=== PATIENT | female | born 1975 | race Caucasian/White ===

== ENCOUNTER 2016-10-16 13:13 | Inpatient (IN) | payer OTHER ==
[~2016-10-16] VITALS: Ht 165.1 cm; Wt 81.6 kg
--- NOTE | 2016-10-16 13:35 | NUR ---
LABS DRAWN AND SENT
--- NOTE | 2016-10-16 13:35 | NUR ---
PT PRESENTS TO ER C/O OF ABDOMINAL PAIN AND DISCHARGE IN URINE. PT STATES SHE HAD HER GALLBLADDER REMOVED IN JULY AND SINCE THEN HAS HAD MULTIPLE ISSUES. PT STATES SHE HAS BEEN HAVING ISSUES WITH BILE DRAINAGE INTO HER BODY, NAUSEA, AND HAS DROPPED 40 LBS BECAUSE SHE CAN'T KEEP ANYTHING DOWN.
[2016-10-16 13:46] LABS: ABSOLUTE BASOPHIL COUNT 0.1 /CUMM (0.0-0.2); ABSOLUTE EOSINOPHIL COUNT 0.1 /CUMM (0.0-0.7); ABSOLUTE GRANULOCYTE CT 5.6 /CUMM (1.4-6.5); ABSOLUTE LYMPH COUNT 3.2 /CUMM (1.2-3.4); ABSOLUTE MONOCYTE COUNT 0.2 /CUMM (0.10-0.60); BASOPHIL % 0.7 % (0.0-2.0); EOSINOPHIL % 0.9 % (0-5); GRANULOCYTE % 60.6 % (42.2-75.2); HEMATOCRIT 42.6 % (37-47); MEAN CORPUSCULAR HGB 25.7 PG (27.0-31.0); MEAN CORPUSCULAR HGB CONC 32.5 G/DL (33.0-37.0); MEAN CORPUSCULAR VOLUME 79.3 FL (81.0-99.0); MEAN PLATELET VOLUME 9.4 FL (7.4-10.4); PLATELET COUNT 355 /CUMM (130-400); RBC DISTRIBUTION WIDTH 17.3 % (11.5-14.5); RED BLOOD CELL CT 5.38 /CUMM (4.20-5.40)
[2016-10-16 14:07] LABS: WHITE BLOOD CELL COUNT 9.2 /CUMM (4.8-10.8)
--- NOTE | 2016-10-16 14:29 | NUR ---
URINE SPECIMEN SENT TO THE LAB (1 CLEAR TUBE)
[2016-10-16] MEDS ORDERED: SUBOXONE 2 MG-1 EACH SL (14:30)
--- NOTE | 2016-10-16 14:30 | ED GI/GU/ABDOMINAL COMPLAINT ---
History of Present Illness General Chief Complaint: Abdominal Pain/Flank Pain Stated Complaint: ABD PAIN DISCOLORATION OF URINE S/P GALLBLADDER SR Source: patient Exam Limitations: no limitations Vital Signs & Intake/Output Vital Signs & Intake/Output Vital Signs Date Time Temp Pulse Resp B/P B/P Pulse O2 O2 Flow FiO2 Mean Ox Delivery Rate 10/16 1733 97.6 70 18 152/82 98 Room Air 10/16 1321 98.1 94 20 171/95 97 Room Air Allergies Coded Allergies: No Known Allergies (10/16/16) Reconcile Medications Buprenorphine HCl/Naloxone HCl (Suboxone 2 MG-0.5 MG Sl Film) 2 MG-0.5 MG FILM 1 STR SL BID MAINTENCE (Reported) Multivits,Ca,Minerals/Iron/FA (Women's Daily Caplet) 27 MG IRON-400 MCG TABLET 1 TAB PO DAILY SUPPLEMENT (Reported) Triage Note: PT PRESENTS TO ER C/O OF ABDOMINAL PAIN AND DISCHARGE IN URINE. PT STATES SHE HAD HER GALLBLADDER REMOVED IN JULY AND SINCE THEN HAS HAD MULTIPLE ISSUES. PT STATES SHE HAS BEEN HAVING ISSUES WITH BILE DRAINAGE INTO HER BODY, NAUSEA, AND HAS DROPPED 40 LBS BECAUSE SHE CAN'T KEEP ANYTHING DOWN. Triage Nurses Notes Reviewed? yes ? N Is pt currently ? No Onset: Gradual Duration: constant Timing: recent history Quality/Severity: moderate Severity Numbers: 5 Location: generalized abdomen Radiation: no radiation HPI: Patient is a 41-year-old female with a past medical history of heroin abuse currently on Suboxone where she has not used in over 3 years who presents emergency room saying that for approximate 1 year patient was complaining of right upper quadrant abdominal pain in which she was admitted on July 28 TO [facility] in which she had a cholecystectomy performed BY DR SALDANA however patient returned that evening to the emergency room AT [facility] for persistent abdominal pain worse she was discharged however patient then returned to [facility] 3 days later and received a cholecystostomy drain AND SUSPECTING CBD STENT and admitted Patient had the drain removed in the first week in August patient followed up with her primary care doctor 2 weeks later for concerns of persistent abdominal discomfort weight loss diet urine and worsening pain after by mouth intake and which she states in the last 3 days symptoms have worsened where she this morning had one episode of nonbloody nonbilious emesis. Patient is stating that her urine looks like bile Denies any fever chills back pain chest pain shortness of breath dysuria hematuria Patient has been able to tolerate by mouth without emesis however her ABDOMINAL symptoms are worse Denies any alcohol use or NSAID use. (KAL JESSICA) Past History Travel History Traveled to [place] past 21 day No Medical History Any Pertinent Medical History? none Neurological: NONE Cardiovascular: NONE Respiratory: NONE Gastrointestinal: NONE Hepatic: NONE Renal: NONE Musculoskeletal: NONE Psychiatric: NONE Endocrine: NONE Surgical History Surgical History: cholecystectomy, , tubal ligation Psychosocial History What is your primary language [place] Tobacco Use: Current Daily Use Daily Tobacco Use Amount/Type: => 5 Cigarettes daily Family History Hx Contributory? No (KAL JESSICA) Review of Systems Review of Systems Constitutional: Reports: no symptoms. EENTM: Reports: no symptoms. Respiratory: Reports: no symptoms. Cardiovascular: Reports: no symptoms. GI: Reports: see HPI, abdominal pain. Genitourinary: Reports: see HPI. Musculoskeletal: Reports: no symptoms. Skin: Reports: no symptoms. Neurological/Psychological: Reports: no symptoms. Hematologic/Endocrine: Reports: no symptoms. Immunologic/Allergic: Reports: no symptoms. All Other Systems: Reviewed and Negative (KAL JESSICA) Physical Exam Physical Exam General Appearance: no apparent distress, alert, comfortable Eyes: Bilateral: PERRL, EOMI, other (ICTERUS). Gastrointestinal: normal bowel sounds, soft, NOTED WELL HEALING INCISIONAL SCARS , GENERALIZED ABDOMINAL POINT TENDERNESS Comments: Well-developed well-nourished person in no acute distress Neck: Supple, no lymphadenopathy, normal range of motion without pain or tenderness Back: Nontender, no CVA tenderness. Cardiovascular: Regular rate and rhythms no murmurs rubs or gallops, normal JVP Respiratory: Chest nontender. No respiratory distress.breath sounds clear to auscultation bilaterally Extremity: No edema, no calf tenderness to palpation, normal and equal pulses. Neuro: Alert oriented x3, motor sensory normal, Skin: No appreciable rash on exposed skin, skin is warm and dry. Psych: Mood and affect is normal, memory and judgment is normal. Core Measures ACS in differential dx? No Severe Sepsis Present: No Septic Shock Present: No (KLA JESSICA) Progress Differential Diagnosis: AAA, AMI, appendicitis, biliary colic, bowel obstruction , colon cancer, cholecystitis, diverticulitis, ectopic , endometritis, esophageal varices, gastritis, ischemic bowel, inflamm bowel dis, kidney stone, ovarian cyst, ovarian torsion, pancreatitis, PID/cervicitis, peptic ulcer, PUD/ GERD, perforated viscous, SBO, UTI/pyelo, CHOLANGITIS Plan of Care: Orders Procedure Date/time Status Nothing by Mouth 10/17 B Active PROTHROMBIN TIME 10/17 0600 Active HEPATIC FUNCTION PANEL 10/17 0600 Active CBC WITHOUT DIFFERENTIAL 10/17 0600 Active BASIC ELECTROLYTES PLUS BUN&CR 10/17 0600 Active Full Liquid Diet 10/16 D Complete Vital Signs 10/16 1803 Active Teach/Educate 10/16 1803 Active Pain Treatment and Response 10/16 180 Active Nutritional Intake, Monitor 10/16 1803 Active Isolation 10/16 1803 Active Intake & Output 10/16 1803 Active Patient Care Conference 10/16 1803 Active Activity/Ambulation 10/16 1803 Active Intake & Output 10/16 1742 Active Saline Lock 10/16 1624 Active Misc Message 10/16 1624 Active ED Holding Orders 10/16 1624 Active Vital Signs 10/16 1624 Active Activity/Ambulation 10/16 1624 Active Pathway - chart 10/16 1613 Active House Staff 10/16 1613 Active Patient Data 10/16 1613 Active Code Status 10/16 1613 Active Admit to inpatient 10/16 1558 Active Add-on Test (ER Only) 10/16 1511 Active BLOOD CULTURE 10/16 1507 Active Add-on Test (ER Only) 10/16 1505 Active Add-on Test (ER Only) 10/16 1458 Active PARTIAL THROMBOPLASTIN TIME 10/16 1327 Complete PROTHROMBIN TIME 10/16 1327 Complete LIPASE 10/16 1327 Complete LACTIC ACID 10/16 1327 Complete HUMAN BETA HCG TITRE 10/16 1327 Complete DIRECT BILIRUBIN 10/16 1327 Complete AMYLASE 10/16 1327 Complete URINALYSIS 10/16 1321 Complete COMPREHENSIVE METABOLIC PANEL 10/16 1321 Complete CBC WITHOUT DIFFERENTIAL 10/16 1321 Complete VTE Mechanical Prophylaxis 10/16 UNK Active Current Medications Sig/Gabriella Start time Last Medication Dose Stop Time Status Admin Ampicillin Sodium/ 1,500 MG Q6 10/17 1200 AC Sulbactam Sodium (Unasyn) Sodium Chloride 100 ML (Normal Saline 0.9%) Enoxaparin Sodium 40 MG DAILY 10/17 1000 CAN (Lovenox) Ketorolac 30 MG Q6-PRN PRN 10/16 1815 AC Tromethamine (Toradol) Ondansetron HCl 4 MG Q6P PRN 10/16 1800 AC (Zofran) Sodium Chloride 1,000 ML .Q8H 10/16 1630 AC 10/16 (Normal Saline 0.9%) 1710 Laboratory Tests 10/16/16 1426: Urinalysis LIGHT H, Urine Color BROWN H, Urine Clarity HAZY H, Urine pH 5.5, Ur Specific [place] >= 1.030, Urine Protein 30 H, Urine Ketones TRACE H, Urine Nitrite POS H, Urine Bilirubin POS@ICTO H, Urine Urobilinogen 1.0, Ur Leukocyte Esterase TRACE H, Ur Microscopic SEDIMENT EXAMINED, Urine RBC 1-3, Urine WBC 15-25 H, Ur Epithelial Cells PACKD H, Urine Crystals 1+ CA OX H, Urine Bacteria MANY H, Urine Mucus MANY H, Urine Hemoglobin TRACE-INTACT, Urine Glucose NEG 10/16/16 1327: Anion Gap 13, Estimated GFR > 60, BUN/Creatinine Ratio 14.0, Glucose 96, Lactic Acid 1.9, Calcium 10.0, Total Bilirubin 5.0 H, Direct Bilirubin 3.9 H, AST 534 H, ALT 409 H, Alkaline Phosphatase 576 H, Total Protein 7.5, Albumin 4.4, Globulin 3.1, Albumin/Globulin Ratio 1.4, Amylase 48, Lipase 123, Beta HCG, Quant < 2.4, PT 11.2, INR 1.07, APTT 33, CBC w Diff NO MAN DIFF REQ, RBC 5.38, MCV 79.3 L, MCH 25.7 L, RDW 17.3 H, MPV 9.4, Gran % 60.6, Lymphocytes % 35.2, Monocytes % 2.6, Eosinophils % 0.9, Basophils % 0.7, Absolute Granulocytes 5.6, Absolute Lymphocytes 3.2, Absolute Monocytes 0.2, Absolute Eosinophils 0.1, Absolute Basophils 0.1, PUBS MCHC 32.5 L Microbiology 10/16 1710 BLOOD: Blood Culture - RECD 10/16 1546 BLOOD: Blood Culture - RECD Patient on initial examination has generalized abdominal point tenderness and labs show elevated bilirubin and LFTs for concern of cholangitis AND/or possible retained stone. Ultrasound was ordered Discussed patient with Dr. Mcneil who also was aware of patient's admission and will consult. Patient will most likely require ERCP. Ultrasound showed concerns of duct dilation as well as hepatic duct dilation Antibiotics were ordered for suspecting cholangitis. KUB was ordered Discussed disposition plan with patient who was aware and HAS NO QUESTIONS patient declined pain medications when offered DENIES ANY CURRENT NAUSEA (KAL JESSICA) Diagnostic Imaging: Viewed by Me: Ultrasound. Radiology Impression: SEE COMMENTS Initial ED EKG: none Comments: PATIENT: CHRISTOPHER SIMPSON PRESENT AGE: 41 PATIENT ACCOUNT NO: [id number] : 77 LOCATION: [facility] ORDERING PHYSICIAN: KAL PATEL SERVICE DATE: 10/16/161933 EXAM TYPE: US - US-LIMITED ABDOMEN EXAMINATION: US ABDOMEN LIMITED CLINICAL INFORMATION: Right upper quadrant pain and nausea. History of cholecystectomy. COMPARISON: None TECHNIQUE: Real-time imaging of the right upper quadrant abdominal viscera. FINDINGS: PANCREAS: Normal. LIVER: Normal. The liver demonstrates normal size, contour and echogenicity. No focal lesion. There is mild dilatation of the intrahepatic bile ducts. GALLBLADDER: The gallbladder is surgically removed. Trace fluid is seen in the gallbladder fossa. COMMON BILE DUCT: The common bile duct is dilated measuring 0.8 cm in diameter. An echogenic focus is seen in the mid to distal common bile duct which could reflect an endoscopic biliary drain but could also reflect choledocholithiasis. RIGHT KIDNEY: Normal. No hydronephrosis. No renal calculi or focal parenchymal lesions. The kidney measures 11.6 cm in maximum dimension. FREE FLUID: None. IMPRESSION: 1. Mild dilatation of intrahepatic bile ducts and the extrahepatic bile duct is also dilated to 8 mm. 2. Echogenic structure in the distal CBD could reflect an endoscopic biliary drain or choledocholithiasis. Consider GI consultation and possible ERCP as appropriate. 3. KUB may also be of utility to assess for any residual drains or catheters if the clinical history is not clear. The findings were discussed with Kal Box. DICTATED BY: BREANNA GARCIAS MD (KAL JESSICA) Departure Departure Disposition: STILL A PATIENT Condition: Fair Clinical Impression Primary Impression: Biliary colic Secondary Impressions: Cholangitis, Common bile duct dilatation Referrals: PATIENT HAS NO PRIMARY CARE DR (PCP/Family) Departure Forms: Customer Survey General Discharge Information Admission Note Spoke With: AROLE M.D,OLUGBENGA Documentation of Exam: Documentation of any treatments & extenuating circumstances including Concerns Regarding Discharge (functional status, medication knowledge or non-compliance, living conditions, etc.) that warrant an admission rather than observation: [ Discussed patient with who agrees with general medicine admission which patient requires GI consultation, repeat labs, ERCP and possible antibiotics for cholangitis. Outpatient treatment would be medically harmful] (KAL JESSICA) PA/[employer]IVER Co-Sign Statement Statement: ED Attending supervision documentation- [] I saw and evaluated the patient. I have also reviewed all the pertinent lab results and diagnostic results. I agree with the findings and the plan of care as documented in the PA's/[employer] TR[employer]'s documentation. [X] I have reviewed the ED Record and agree with the PA's/[employer]'s documentation. [] Additions or exceptions (if any) to the PAs/[employer]IVER's note and plan are summarized below: [] (LORI BAUMAN,NESHA Marvin) Critical Care Note Critical Care Note Critical Care Time: 30-74 min (KAL JESSICA)
[2016-10-16] MEDS ORDERED: WOMEN'S DAILY1 EAC3 PO (14:31)
[2016-10-16 15:14] LABS: PT 11.2 SEC (9.4-12.5); PTT 33 SEC (25-37)
--- NOTE | 2016-10-16 15:16 | NUR ---
PT TO US BY NITIN.
--- NOTE | 2016-10-16 15:48 | NUR ---
PT RETURNED FROM US, 1ST SET OF BC DRAWN AND SENT TO LAB. IV EST, NS INFUSING PER EMAR.
--- NOTE | 2016-10-16 15:59 | ULTRASOUND REPORT ---
EXAMINATION: US ABDOMEN LIMITED CLINICAL INFORMATION: Right upper quadrant pain and nausea. History of cholecystectomy. COMPARISON: None TECHNIQUE: Real-time imaging of the right upper quadrant abdominal viscera. FINDINGS: PANCREAS: Normal. LIVER: Normal. The liver demonstrates normal size, contour and echogenicity. No focal lesion. There is mild dilatation of the intrahepatic bile ducts. GALLBLADDER: The gallbladder is surgically removed. Trace fluid is seen in the gallbladder fossa. COMMON BILE DUCT: The common bile duct is dilated measuring 0.8 cm in diameter. An echogenic focus is seen in the mid to distal common bile duct which could reflect an endoscopic biliary drain but could also reflect choledocholithiasis. RIGHT KIDNEY: Normal. No hydronephrosis. No renal calculi or focal parenchymal lesions. The kidney measures 11.6 cm in maximum dimension. FREE FLUID: None. IMPRESSION: 1. Mild dilatation of intrahepatic bile ducts and the extrahepatic bile duct is also dilated to 8 mm. 2. Echogenic structure in the distal CBD could reflect an endoscopic biliary drain or choledocholithiasis. Consider GI consultation and possible ERCP as appropriate. 3. KUB may also be of utility to assess for any residual drains or catheters if the clinical history is not clear. The findings were discussed with Atif Box.
--- NOTE | 2016-10-16 16:23 | Cons- Gastroenterology ---
General Information and HPI Consulting Request Date of Consult: 10/16/16 Requested By: JORGE Enamorado Reason for Consult: Increased LFTs, abdominal pain, diarrhea, vomiting. Abnomral US showing suma dil and possible biliary stent. Source of Information: patient Exam Limitations: pt isn't entirely certain on the details of her CCY removal and the procedures which followed which sounds like she had an ERCP and possible PTC. History of Present Illness: Ms. Goodson is a 41 year old female who had her gallbladder out in late July for biliary colic who comes to today with complaints of worsening abdominal pain associated with bilious vomiting. She notes that her GB removal was uneventful, but a few days after her gallbladder was removed she went back to the ER with pain and vomiting during which time she had a percutanous drain placed and she may have also had an ERCP with a stent being placed, but she is uncertain of the details of what was done. Her percutanous drain was removed in the surgeons office in August without incident, but she notes that she hasn't felt quite well since her CCY. She has had a lot of nausea and abdominal discomfort with eating and she has also had some non-bloody diarrhea. This morning she had an exacerbation of her symptoms with nausea and vomiting for which she came here for further evaluation. She has not had any fevers and she is without hematemesis. She does note some dark urine, but her stool has been loose and she doesn't necessarily describe it as being pola colored. She is without any brbpr or melena. On arrival to the ER she was afebrile, and hemodynamically stable. She was given a dose of unasyn and had an US done when her LFTs came back markedly elevated which showed a CBD of 8mm with a possible stone or a stent. She has not had any vomiting or significant abdominal pain since presentation and she has not required pain meds. Allergies/Medications Allergies: Coded Allergies: No Known Allergies (10/16/16) Home Med List: Buprenorphine HCl/Naloxone HCl (Suboxone 2 MG-0.5 MG Sl Film) 2 MG-0.5 MG FILM 1 STR SL BID MAINTENCE (Reported) Ciprofloxacin HCl (Cipro) 500 MG TABLET 500 MG PO BID Infection Multivits,Ca,Minerals/Iron/FA (Women's Daily Caplet) 27 MG IRON-400 MCG TABLET 1 TAB PO DAILY SUPPLEMENT (Reported) Current Medications: Current Medications Sig/Gabriella Start time Last Medication Dose Route Stop Time Status Admin Ampicillin Sodium/ 0 .STK-MED ONE 10/16 1522 DC Sulbactam Sodium .ROUTE Ampicillin Sodium/ 1,500 MG ONCE ONE 10/16 1515 DC Sulbactam Sodium IV 10/16 1544 Sodium Chloride 100 ML Sodium Chloride 1,000 ML BOLUS ONE 10/16 1500 DC 10/16 IV 10/16 1559 1548 Past History Travel History Traveled to [place] past 21 day No Medical History Neurological: NONE Cardiovascular: NONE Respiratory: NONE Gastrointestinal: NONE Hepatic: NONE Renal: NONE Musculoskeletal: NONE Psychiatric: NONE Endocrine: NONE Surgical History Surgical History: cholecystectomy, , tubal ligation Review of Systems Review of Systems Constitutional: Reports: unexplained weight loss. Denies: chills (about 30 lb wt loss since CCY ), diaphoresis, fever. EENTM: Reports: icterus. Denies: double vision, visual changes. Cardiovascular: Denies: no symptoms. Respiratory: Denies: no symptoms. GI: Reports: see HPI. Genitourinary: Reports: see HPI. Musculoskeletal: Denies: no symptoms. Skin: Denies: no symptoms. Neurological/Psychological: Denies: no symptoms. Hematologic/Endocrine: Denies: no symptoms. Immunologic/Allergic: Denies: no symptoms. All Other Systems: Reviewed and Negative Exam & Diagnostic Data Vital Signs and I&O Vital Signs Date Time Temp Pulse Resp B/P B/P Pulse O2 O2 Flow FiO2 Mean Ox Delivery Rate 10/16 1321 98.1 94 20 171/95 97 Room Air Intake & Output 10/16 1600 10/16 0400 10/15 0400 10/14 0400 Intake Total Output Total Balance Patient 180 lb Weight Physical Exam General Appearance: well developed/nourished, no apparent distress, comfortable Head: atraumatic, normal appearance Eyes: Bilateral: other (scleral icterus). Ears, Nose, Throat: normal pharynx, normal ENT inspection Neck: normal inspection, supple, full range of motion Respiratory: normal breath sounds, chest non-tender, no respiratory distress Cardiovascular: regular rate/rhythm Gastrointestinal: normal bowel sounds, soft, non-tender Rectal: deferred Back: normal inspection, normal range of motion Extremities: normal inspection, normal capillary refill, no edema Results Pertinent Lab Results: Laboratory Tests 10/16 10/16 1426 1327 Chemistry Sodium (137 - 145 mmol/L) 137 Potassium (3.5 - 5.1 mmol/L) 3.6 Chloride (98 - 107 mmol/L) 98 Carbon Dioxide (22 - 30 mmol/L) 26 Anion Gap (5 - 16) 13 BUN (7 - 17 mg/dL) 7 Creatinine (0.5 - 1.0 mg/dL) 0.5 Estimated GFR (>60 ml/min) > 60 BUN/Creatinine Ratio (7 - 25 %) 14.0 Glucose (65 - 99 mg/dL) 96 Lactic Acid (0.7 - 2.1 mmol/L) 1.9 Calcium (8.4 - 10.2 mg/dL) 10.0 Total Bilirubin (0.2 - 1.3 mg/dL) 5.0 H Direct Bilirubin (< 0.4 mg/dL) 3.9 H AST (14 - 36 U/L) 534 H ALT (9 - 52 U/L) 409 H Alkaline Phosphatase (<127 U/L) 576 H Total Protein (6.3 - 8.2 g/dL) 7.5 Albumin (3.5 - 5.0 g/dL) 4.4 Globulin (1.9 - 4.2 gm/dL) 3.1 Albumin/Globulin Ratio (1.1 - 2.2 %) 1.4 Amylase (30 - 110 U/L) 48 Lipase (23 - 300 U/L) 123 Beta HCG, Quant (mIU/mL) < 2.4 Coagulation PT (9.4 - 12.5 SEC) 11.2 INR (0.90 - 1.19) 1.07 APTT (25 - 37 SEC) 33 Hematology CBC w Diff NO MAN DIFF REQ WBC (4.8 - 10.8 /CUMM) 9.2 RBC (4.20 - 5.40 /CUMM) 5.38 Hgb (12.0 - 16.0 G/DL) 13.8 Hct (37 - 47 %) 42.6 MCV (81.0 - 99.0 FL) 79.3 L MCH (27.0 - 31.0 PG) 25.7 L RDW (11.5 - 14.5 %) 17.3 H Plt Count (130 - 400 /CUMM) 355 MPV (7.4 - 10.4 FL) 9.4 Gran % (42.2 - 75.2 %) 60.6 Lymphocytes % (20.5 - 51.1 %) 35.2 Monocytes % (1.7 - 9.3 %) 2.6 Eosinophils % (0 - 5 %) 0.9 Basophils % (0.0 - 2.0 %) 0.7 Absolute Granulocytes (1.4 - 6.5 /CUMM) 5.6 Absolute Lymphocytes (1.2 - 3.4 /CUMM) 3.2 Absolute Monocytes (0.10 - 0.60 /CUMM) 0.2 Absolute Eosinophils (0.0 - 0.7 /CUMM) 0.1 Absolute Basophils (0.0 - 0.2 /CUMM) 0.1 PUBS MCHC (33.0 - 37.0 G/DL) 32.5 L Urines Urinalysis LIGHT H Urine Color (YEL,AMB,STR) BROWN H Urine Clarity (CLEAR) HAZY H Urine pH (5.0 - 8.0) 5.5 Ur Specific [place] (1.001 - 1.035) >= 1.030 Urine Protein (NEG,<30 MG/DL) 30 H Urine Ketones (NEG) TRACE H Urine Nitrite (NEG) POS H Urine Bilirubin (NEG) POS@ICTO H Urine Urobilinogen (0.1 - 1.0 EU/dl) 1.0 Ur Leukocyte Esterase (NEG) TRACE H Ur Microscopic SEDIMENT EXAMINED Urine RBC (0 - 5 /HPF) 1-3 Urine WBC (0 - 2 /HPF) 15-25 H Ur Epithelial Cells (NONE,FEW) PACKD H Urine Crystals 1+ CA OX H Urine Bacteria (NEG/NONE) MANY H Urine Mucus (FEW,NONE) MANY H Urine Hemoglobin (NEG) TRACE-INTACT Urine Glucose (N MG/DL) NEG Imaging/Other Studies: SERVICE DATE: 10/16/16 EXAM TYPE: US - US-LIMITED ABDOMEN EXAMINATION: US ABDOMEN LIMITED CLINICAL INFORMATION: Right upper quadrant pain and nausea. History of cholecystectomy. COMPARISON: None TECHNIQUE: Real-time imaging of the right upper quadrant abdominal viscera. FINDINGS: PANCREAS: Normal. LIVER: Normal. The liver demonstrates normal size, contour and echogenicity. No focal lesion. There is mild dilatation of the intrahepatic bile ducts. GALLBLADDER: The gallbladder is surgically removed. Trace fluid is seen in the gallbladder fossa. COMMON BILE DUCT: The common bile duct is dilated measuring 0.8 cm in diameter. An echogenic focus is seen in the mid to distal common bile duct which could reflect an endoscopic biliary drain but could also reflect choledocholithiasis. RIGHT KIDNEY: Normal. No hydronephrosis. No renal calculi or focal parenchymal lesions. The kidney measures 11.6 cm in maximum dimension. FREE FLUID: None. IMPRESSION: 1. Mild dilatation of intrahepatic bile ducts and the extrahepatic bile duct is also dilated to 8 mm. 2. Echogenic structure in the distal CBD could reflect an endoscopic biliary drain or choledocholithiasis. Consider GI consultation and possible ERCP as appropriate. 3. KUB may also be of utility to assess for any residual drains or catheters if the clinical history is not clear. Assessment/Plan Assessment/Recommendations: Assessment: Ms. Goodson is a 41 year old female who had her gallbladder out a few months ago which then required what sounds like a PTC and/or an ERCP for unclear reasons a few days later who presents now with worsening vomiting and increased LFTs which I suspect is secondary to either a clogged biliary stent or a retained gallstone. I suspect she may have had a bile leak that was treated with IR drainage and an ERCP with stent placement and I also suspect that the diarrhea she has been having is bile acid diarrhea. Considering her increased bilirubin now and US findings she will likely require a repeat ERCP to either remove or exchange a clogged biliary stent or remove any retained stones within her CBD. As she is currently without signs of cholangitis as she is afebrile, doesn't have an elevated WBC and doesn't have significant RUQ pain this isn't urgent. This can also potentially be done as an outpatient, but considering the vomiting I would recommened admitting her and taking care of this now. Recommendations: 1. Check a KUB to see if a biliary stent is present 2. Notify GI for signs of cholangitis. OK to observe off of antibiotics, but she will likely require antibiotics for any biliary intervention that may be undertaken (ie. ERCP) 3. Diet as tolerated for now, but would keep NPO after midnight for a therapeutic ERCP for tomorrow, but may do sooner if she develops signs of cholangitis 4. Administer anti-emetics as needed 5. Folllow daily LFTS 6. Check coags 7. Make efforts to obtain details concerning her recent hospitalizations and procedures done at [facility]. I will continue to follow this patient and make further recommendations based on her clinical course and results of repeat LFTs. Consult Acknowledgment - Thank you for your consult request.
--- NOTE | 2016-10-16 16:40 | NUR ---
PT TO RAD BY STRETCHER.
--- NOTE | 2016-10-16 16:58 | RADIOLOGY REPORT ---
EXAMINATION: XR KIDNEYS, URETER, BLADDER CLINICAL INDICATION: Cholecystectomy. Biliary stent. COMPARISON: None TECHNIQUE: AP view of the abdomen. FINDINGS: Surgical clips right upper quadrant. CBD biliary stent in right upper quadrant. Nonobstructive bowel pattern. Small volume of scattered stool in colon. No radiopaque genitourinary calculi. Multiple calcified phleboliths in lower pelvis. IMPRESSION: Status post cholecystectomy. CBD biliary stent right upper quadrant. No acute change of abdomen.
--- NOTE | 2016-10-16 17:10 | NUR ---
2ND SET OF BC DRAWN ANS SENT TO LAB. UNASYN AND 2ND NS INFUSING PER EMAR. HOUSE STAFF TO BEDSIDE FOR EVAL.
--- NOTE | 2016-10-16 17:26 | NUR ---
PT HAS A BED [id number]
--- NOTE | 2016-10-16 17:36 | History & Physical ---
WILI MCCARTY 10/16/16 1720: General Information and HPI MD Statement: I have seen and personally examined CHRISTOPHER SIMPSON and documented this H&P. The patient is a 41 year old F who presented with a patient stated chief complaint of [nausea]. 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 Patient reports that she had cholecystectomy on 07/28/2016 at [facility]. She had multiple gallstones and a lot of biliary colic back then. After the procedure, patient continued to have intense abdominal pain and went back to the ER the same evening to see the surgeon. However since the wait time was long, she came back home without seeing her doctor. Over the next 3 days she continued to have diffuse abdominal discomfort and nausea. She was seen at her surgeon Dr. John's office on the fourth day and was found to have biliary leakage. She got a percutaneous cholecystostomy a possible ERCP with a stent placement. The drain was taken out after about 4 days after good output. Patient noted that his symptoms never really got better. She continued to have abdominal pain, nausea and extreme fatigue during the past 2 months. She has noted that her urine is very dark and her stools are taken alert. She denies any fever, chills, yellowishness of skin, hematemesis, melena. She has had some loose stools over the past few days. She came to [place] because she did not want to go back to [facility] again for any intervention. In the ER upon arrival, her vitals showed a temperature of 98.1, pulse 94, respiration 20, blood pressure 171/95, saturating 97% on room air. Labs showed no white count, no bandemia, normal electrolytes, elevated LFTs with T bili 5, direct bili 3.9, AST 534, ALT 409, alkaline phosphatase 576, normal amylase and lipase. UA was nitrite positive, trace leukocyte esterase positive with 15-25 white cells. Abdominal ultrasound showed mild dilatation of intrahepatic bile ducts and the extrahepatic bile duct is also dilated to 8 mm. Echogenic structure in the distal CBD could reflect an endoscopic biliary drain or choledocholithiasis KUB x-ray showed CBD biliary stent right upper quadrant. No acute change of abdomen. Patient received 2 L of fluid bolus and IV Unasyn in the ED. Allergies/Medications Allergies: Coded Allergies: No Known Allergies (10/16/16) Home Med list Buprenorphine HCl/Naloxone HCl (Suboxone 2 MG-0.5 MG Sl Film) 2 MG-0.5 MG FILM 1 STR SL BID MAINTENCE (Reported) Multivits,Ca,Minerals/Iron/FA (Women's Daily Caplet) 27 MG IRON-400 MCG TABLET 1 TAB PO DAILY SUPPLEMENT (Reported) Past History Travel History Traveled to [place] past 21 day No Medical History Neurological: NONE Cardiovascular: NONE Respiratory: NONE Gastrointestinal: NONE Hepatic: NONE Renal: NONE Musculoskeletal: NONE Psychiatric: NONE Endocrine: NONE Surgical History Surgical History: cholecystectomy, , tubal ligation Review of Systems Review of Systems Constitutional: Reports: malaise, weakness. EENTM: Reports: no symptoms. Cardiovascular: Reports: no symptoms. Respiratory: Reports: no symptoms. GI: Reports: abdominal pain, nausea, changes in stool. Musculoskeletal: Reports: no symptoms. Skin: Reports: no symptoms. Neurological/Psychological: Reports: no symptoms. Exam & Diagnostic Data Last 24 Hrs of Vital Signs/I&O Vital Signs Date Time Temp Pulse Resp B/P B/P Pulse O2 O2 Flow FiO2 Mean Ox Delivery Rate 10/16 1733 97.6 70 18 152/82 98 Room Air 10/16 1321 98.1 94 20 171/95 97 Room Air Intake & Output 10/16 1600 10/16 0800 10/16 0000 Intake Total Output Total Balance Patient 81.647 kg Weight Physical Exam General Appearance Alert, Oriented X3, Cooperative, No Acute Distress Skin No Rashes, No Breakdown, No Significant Lesion, laparoscopy scars in the abdomen Skin Temp/Moisture Exam: Warm/Dry Sepsis Skin Exam (color): Normal for Ethnicity HEENT Atraumatic, PERRLA, EOMI, MILD SCLERAL ICTERUS Neck Supple, No JVD Lymphatic Cervical nl Cardiovascular Regular Rate, Normal S1, Normal S2, No Murmurs Lungs Clear to Auscultation, Normal Air Movement Abdomen Normal Bowel Sounds, Soft, mild tenderness on deep palpation in the RLQ Neurological Normal Speech, Strength at 5/5 X4 Ext, Normal Tone, Sensation Intact, Cranial Nerves 3-12 NL Last 24 Hrs of Labs/Uzair: Laboratory Tests 10/16/16 1426: Urinalysis LIGHT H, Urine Color BROWN H, Urine Clarity HAZY H, Urine pH 5.5, Ur Specific [place] >= 1.030, Urine Protein 30 H, Urine Ketones TRACE H, Urine Nitrite POS H, Urine Bilirubin POS@ICTO H, Urine Urobilinogen 1.0, Ur Leukocyte Esterase TRACE H, Ur Microscopic SEDIMENT EXAMINED, Urine RBC 1-3, Urine WBC 15-25 H, Ur Epithelial Cells PACKD H, Urine Crystals 1+ CA OX H, Urine Bacteria MANY H, Urine Mucus MANY H, Urine Hemoglobin TRACE-INTACT, Urine Glucose NEG 10/16/16 1327: Anion Gap 13, Estimated GFR > 60, BUN/Creatinine Ratio 14.0, Glucose 96, Lactic Acid 1.9, Calcium 10.0, Total Bilirubin 5.0 H, Direct Bilirubin 3.9 H, AST 534 H, ALT 409 H, Alkaline Phosphatase 576 H, Total Protein 7.5, Albumin 4.4, Globulin 3.1, Albumin/Globulin Ratio 1.4, Amylase 48, Lipase 123, Beta HCG, Quant < 2.4, PT 11.2, INR 1.07, APTT 33, CBC w Diff NO MAN DIFF REQ, RBC 5.38, MCV 79.3 L, MCH 25.7 L, RDW 17.3 H, MPV 9.4, Gran % 60.6, Lymphocytes % 35.2, Monocytes % 2.6, Eosinophils % 0.9, Basophils % 0.7, Absolute Granulocytes 5.6, Absolute Lymphocytes 3.2, Absolute Monocytes 0.2, Absolute Eosinophils 0.1, Absolute Basophils 0.1, PUBS MCHC 32.5 L Microbiology 10/16 1710 BLOOD: Blood Culture - RECD 10/16 1546 BLOOD: Blood Culture - RECD Assessment/Plan Assessment: Patient is a 41-year-old female with 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 In the ER upon arrival, her vitals showed a temperature of 98.1, pulse 94, respiration 20, blood pressure 171/95, saturating 97% on room air. Labs showed no white count, no bandemia, normal electrolytes, elevated LFTs with T bili 5, direct bili 3.9, AST 534, ALT 409, alkaline phosphatase 576, normal amylase and lipase. UA was nitrite positive, trace leukocyte esterase positive with 15-25 white cells. Abdominal ultrasound showed mild dilatation of intrahepatic bile ducts and the extrahepatic bile duct is also dilated to 8 mm. Echogenic structure in the distal CBD could reflect an endoscopic biliary drain or choledocholithiasis KUB x-ray showed CBD biliary stent right upper quadrant. No acute change of abdomen. Patient received 2 L of fluid bolus and IV Unasyn in the ED. Assessment * Status post cholecystectomy(07/28/2016) and percutaneous cholecystostomy tube * CBD biliary stent * Nausea and vomiting * Dilatation of intrahepatic and extrahepatic bile duct(8mm) * Suboxone user Plan * Admit patient to [facility] * Vitals per protocol * GI has been consulted. Patient is not in sepsis at this time. She is hemodynamically stable with no signs of cholangitis. She received 1 dose of IV Unasyn in the ED. We will continue Unasyn for the biliary procedure/ ERCP. * Patient received 2 L of fluid in the ED. Continue hydration with normal saline at 125 mL an hour. * Follow up blood cultures * We will continue full liquid diet for now. Nothing by mouth from midnight for therapeutic ERCP tomorrow. * Continue IV Zofran for nausea as needed * We will trend LFTs * Check labs tomorrow along with coagulation profile * Notify GI stat if patient becomes hemodynamically unstable or develops signs of cholangitis. * We will try to get [facility] records. Her surgeon is Dr. John. * Patient is on 2 mg SUBOXONE sublingual. She receives it from Dr. Jensen in [place]. Patient received a dose today. Please confirm her dose in a.m. * DVT prophylaxis subcutaneous Lovenox. Please hold in a.m. for procedure * Full code * Moderate pain pathway(avoid opiates) As Ranked By This Provider Problem List: 1. Common bile duct dilatation 2. Nausea & vomiting Core Measures/Miscellaneous Acute Coronary Syndrome ACS Diagnosis: No Cerebrovascular Accident CVA/TIA Diagnosis: No Congestive Heart Failure CHF Diagnosis: No VTE (View Protocol) VTE Risk Factors: No Risk Factors No [facility] VTE prophylaxis d/t: No contraindications No VTE Pharm Prophylaxis d/t: No contraindications VTE Diagnosis: No VTE Type: NONE VTE Confirmed by (Test): NONE Sepsis (View Protocol) Severe Sepsis Present: No Septic Shock Septic Shock Present: No Miscellaneous Documentation Attending Case Discussed With: NIHARIKA PARADA MD Primary Care Physician: PATIENT HAS NO PRIMARY CARE DR Patient sees these Specialists dr john Level of Patient Care: General Medicine [facility]ESS[facility] BAUMAN[facility] 10/16/16 0852: Attending MD Review Statement Attending Statement Attending MD Statement: examined this patient, discuss w/resident/PA/CUTTING MACHINE OFFBEARER, agreed w/resident/PA/CUTTING MACHINE OFFBEARER, reviewed EMR data (avail), discussed with nursing, discussed with case mgmt, amended to note Attending Assessment/Plan: Patient seen and examined. I have reviewed and agree with resident's history and physical as well as assessment and plan. Patient is 61-year-old female who presents status post history of cholecystectomy in the past and biliary stent placement with complaints of nausea vomiting and abdominal discomfort. She is currently afebrile and hemodynamically stable. Laboratory data suggestive of biliary obstruction, this finding is supported by her ultrasonographic findings as well. She has been seen by the gastroenterology service and is scheduled for an ERCP morning. If labs show improvement of her LFTs she will undergo an MRCP first. She is currently symptom free she will be provided with a full liquid diet. She'll be kept nothing by mouth past midnight.
--- NOTE | 2016-10-16 17:42 | NUR ---
REPORT GIVEN TO 2NB
[2016-10-16 18:00] VITALS: BP 145/65
--- NOTE | 2016-10-16 18:00 | NUR ---
NURSING NOTE: PATIENT ARRIVED TO FLOOR VIA W/C WITH ER STAFF. PATIENT A/OX3, STEADY GAIT, DENIES CP, DENIES SOB. SKIN INTACT, THOUGH SUNBURN NOTED TO FOREHEAD AND UPPER BACK AND HEALING SURGICAL SCARS TO ABDOMEN X4. IV IN PLACE WITH FLUIDS RUNNING PER ORDER. CLEAR LIQUID DIET AT THIS TIME. PATIENT UNDERSTANDS NPO AT MIDNIGHT FOR MORNING PROCEDURE. VSS.
[2016-10-16 23:50] VITALS: BP 136/76
--- NOTE | 2016-10-17 05:50 | PN- Housestaff ---
See Addendum Subjective Follow-up For: Biliary disease Nausea and vomiting Subjective: Patient seen and examined this morning. She remains NPO and feels very hungry. Denies any nause or vomiting as she hasn't eaten anything. Last BM was yesterday and it looked like a "pale diarrhea." Denies any fever, chills, abdominal pain, headache, chest pain, dyspnea. No events reported overnight. Waiting for ERCP today. Review of Systems Constitutional: Reports: see HPI. Objective Last 24 Hrs of Vital Signs/I&O Vital Signs Date Time Temp Pulse Resp B/P B/P Pulse O2 O2 Flow FiO2 Mean Ox Delivery Rate 10/17 0626 97.8 64 20 124/80 96 Room Air 10/16 2350 98.0 81 18 136/76 95 Room Air 10/16 1800 98.2 75 18 145/65 98 Room Air 10/16 1733 97.6 70 18 152/82 98 Room Air 10/16 1321 98.1 94 20 171/95 97 Room Air Intake & Output 10/17 1600 10/17 0800 10/17 0000 Intake Total 1620 Output Total Balance 1620 Intake, IV 1500 Intake, Oral 120 Number 0 Bowel Movements Patient 81.647 kg Weight Weight Reported by Patient Measurement Method Physical Exam General Appearance: Alert, Oriented X3, Cooperative, No Acute Distress Other Physical Findings: Skin No Rashes, No Breakdown, No Significant Lesion, laparoscopy scars in the abdomen Skin Temp/Moisture Exam: Warm/Dry Sepsis Skin Exam (color): Normal for Ethnicity HEENT Atraumatic, PERRLA, EOMI, MILD SCLERAL ICTERUS Neck Supple, No JVD Lymphatic Cervical nl Cardiovascular Regular Rate, Normal S1, Normal S2, No Murmurs Lungs Clear to Auscultation, Normal Air Movement Abdomen Normal Bowel Sounds, Soft, mild tenderness on deep palpation in the RLQ Neurological Normal Speech, Strength at 5/5 X4 Ext, Normal Tone, Sensation Intact, Cranial Nerves 3-12 NL Current Medications: Current Medications Sig/Gabriella Start time Last Medication Dose Route Stop Time Status Admin Ampicillin Sodium/ 1,500 MG Q6 10/17 1200 AC Sulbactam Sodium IV Sodium Chloride 100 ML Ampicillin Sodium/ 0 .STK-MED ONE 10/16 1522 DC Sulbactam Sodium .ROUTE Ampicillin Sodium/ 1,500 MG ONCE ONE 10/16 1515 DC 10/16 Sulbactam Sodium IV 10/16 1544 1710 Sodium Chloride 100 ML Enoxaparin Sodium 40 MG DAILY 10/17 1000 CAN SC Enoxaparin Sodium 40 MG ONCE ONE 10/16 181 DC 10/16 SC 10/16 181 2200 Ketorolac 30 MG Q6-PRN PRN 10/16 181 AC 10/17 Tromethamine IV 0055 Morphine Sulfate 1 MG Q4 PRN 10/16 1615 DC IV Nicotine 14 MG DAILY 10/16 1947 10/16 TOP 2158 Ondansetron HCl 4 MG Q6P PRN 10/16 1800 AC IV Oxycodone HCl 5 MG Q6 PRN 10/16 1615 DC PO Sodium Chloride 1,000 ML .Q8H 10/16 1630 AC 10/17 IV 0849 Sodium Chloride 1,000 ML BOLUS ONE 10/16 1500 DC 10/16 IV 10/16 1559 1548 Last 24 Hrs of Lab/Uzair Results Last 24 Hrs of Labs/Mics: Laboratory Tests 10/17/16 0630: Anion Gap 8, Estimated GFR > 60, BUN/Creatinine Ratio 12.0, Total Bilirubin 2.5 H, Direct Bilirubin 1.8 H, AST 395 H, ALT 343 H, Alkaline Phosphatase 411 H, Total Protein 5.3 L, Albumin 2.8 L, PT 10.5, INR 1.00, CBC w Diff NO MAN DIFF REQ, RBC 4.65, MCV 79.2 L, MCH 26.1 L, RDW 17.1 H, MPV 9.8, Gran % 60.6, Lymphocytes % 30.6, Monocytes % 4.5, Eosinophils % 4.2, Basophils % 0.1, Absolute Granulocytes 3.6, Absolute Lymphocytes 1.8, Absolute Monocytes 0.3, Absolute Eosinophils 0.3, Absolute Basophils 0, PUBS MCHC 32.9 L 10/16/16 1426: Urinalysis LIGHT H, Urine Color BROWN H, Urine Clarity HAZY H, Urine pH 5.5, Ur Specific [place] >= 1.030, Urine Protein 30 H, Urine Ketones TRACE H, Urine Nitrite POS H, Urine Bilirubin POS@ICTO H, Urine Urobilinogen 1.0, Ur Leukocyte Esterase TRACE H, Ur Microscopic SEDIMENT EXAMINED, Urine RBC 1-3, Urine WBC 15-25 H, Ur Epithelial Cells PACKD H, Urine Crystals 1+ CA OX H, Urine Bacteria MANY H, Urine Mucus MANY H, Urine Hemoglobin TRACE-INTACT, Urine Glucose NEG 10/16/16 1327: Anion Gap 13, Estimated GFR > 60, BUN/Creatinine Ratio 14.0, Glucose 96, Lactic Acid 1.9, Calcium 10.0, Total Bilirubin 5.0 H, Direct Bilirubin 3.9 H, AST 534 H, ALT 409 H, Alkaline Phosphatase 576 H, Total Protein 7.5, Albumin 4.4, Globulin 3.1, Albumin/Globulin Ratio 1.4, Amylase 48, Lipase 123, Beta HCG, Quant < 2.4, PT 11.2, INR 1.07, APTT 33, CBC w Diff NO MAN DIFF REQ, RBC 5.38, MCV 79.3 L, MCH 25.7 L, RDW 17.3 H, MPV 9.4, Gran % 60.6, Lymphocytes % 35.2, Monocytes % 2.6, Eosinophils % 0.9, Basophils % 0.7, Absolute Granulocytes 5.6, Absolute Lymphocytes 3.2, Absolute Monocytes 0.2, Absolute Eosinophils 0.1, Absolute Basophils 0.1, PUBS MCHC 32.5 L Microbiology 10/16 1710 BLOOD: Blood Culture - RECD 10/16 1546 BLOOD: Blood Culture - RECD Assessment/Plan Assessment: Patient is a 41-year-old female with 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 # Biliary colic She had undergone cholecystectomy(07/28/2016) followed by percutaneous cholecystostomy tube with CBD biliary stent placement. LFTs sigificant for T bili 5, direct bili 3.9, AST 534, ALT 409, alkaline phosphatase 576. Her current biliary colic with nausea, vomiting and dark urine is most likely 2/2 gallstone retention or clogged CBD stent. Consistent with U/S which showed dilatation of intrahepatic and extrahepatic bile duct (8mm). [facility] x-ray showed CBD biliary stent right upper quadrant. * Vitals per protocol * GI following, appreciate recs. * Patient remains aferbile and HDS with no signs of systemic infection. Suspiscion for cholangitis insignificant. Regardless she received 1 dose of IV Unasyn in the ED, * Continue IV Unasyn for the biliary procedure/ ERCP. * Continue IV hydration with normal saline at 125 mL an hour. * Follow up blood cultures * Advance diet as tolerated after ERCP * Continue IV Zofran for nausea as needed * Trend LFTs * Notify GI stat if patient becomes hemodynamically unstable or develops signs of cholangitis. # Chronic opioid use Patient is on 2 mg SUBOXONE sublingual. She receives it from Dr. Jensen in [place]. Patient received a dose today. * Continue suboxone 2mg daily - NPO (awaiting ERCP) - Mild-moderate pathway - DVTppx with Lovenox - Full code. Problem List: 1. Biliary colic 2. Common bile duct dilatation 3. Nausea & vomiting Pain Ratin Pain Location: 0 Pain Goal: Remain pain free Pain Plan: Mild path Tomorrow's Labs & Rationales: CBC BEP 2. Common bile duct dilatation 3. Nausea & vomiting Pain Ratin Pain Location: 0 Pain Goal: Remain pain free Pain Plan: Mild path Tomorrow's Labs & Rationales: CBC BEP
[2016-10-17 06:26] VITALS: BP 124/80
--- NOTE | 2016-10-17 08:02 | Admission Certification ---
Admission Certification Certification Statement - As attending physician, I certify that at the time of - admission, based on clinical presentation, severity of - symptoms, need for further diagnostic testing and - therapeutic interventions, and risk of adverse outcomes - without in-hospital treatment, in my clinical assessment, - this patient requires an acute hospital stay for a minimum - of two nights or longer. I have also considered psychsocial - factors such as support system, advanced age, financial - issues, cognitive issues, and failed out-patient treatments, - past re-admission history, safety of patient, and lack of - compliance as applicable. Specific rationale supporting this admission is: Patient will be admitted for ERCP and further workup of elevated LFTs.
[2016-10-17 08:06] LABS: ABSOLUTE BASOPHIL COUNT 0 /CUMM (0.0-0.2); ABSOLUTE EOSINOPHIL COUNT 0.3 /CUMM (0.0-0.7); ABSOLUTE GRANULOCYTE CT 3.6 /CUMM (1.4-6.5); ABSOLUTE LYMPH COUNT 1.8 /CUMM (1.2-3.4); ABSOLUTE MONOCYTE COUNT 0.3 /CUMM (0.10-0.60); BASOPHIL % 0.1 % (0.0-2.0); EOSINOPHIL % 4.2 % (0-5); MEAN CORPUSCULAR HGB 26.1 PG (27.0-31.0); MEAN CORPUSCULAR HGB CONC 32.9 G/DL (33.0-37.0); MEAN CORPUSCULAR VOLUME 79.2 FL (81.0-99.0); MEAN PLATELET VOLUME 9.8 FL (7.4-10.4); PLATELET COUNT 263 /CUMM (130-400); RBC DISTRIBUTION WIDTH 17.1 % (11.5-14.5); RED BLOOD CELL CT 4.65 /CUMM (4.20-5.40); WHITE BLOOD CELL COUNT 5.9 /CUMM (4.8-10.8)
[2016-10-17 08:27] LABS: PT 10.5 SEC (9.4-12.5)
--- NOTE | 2016-10-17 08:30 | NUR ---
NURSING NOTE: PATIENT INFORMED THAT HER ERCP PROCEDURE WILL BE IN THE AFTERNOON AFTER 1:30PM. PATIENT STARTED CRYING AND SAYING SHE DOES NOT WANT TO STAY THIS LONG FOR THE TEST. SHE STATES SHE WANTS TO GO HOME. WELT STITCH CLEANER Luther BERNAL NOTIFIED AND SPOKE WITH PATIENT. BACKEND JAVA DEVELOPER [id number] NOTIFIED AND WILL COME SPEAK WITH PATIENT.
[2016-10-17 08:44] LABS: HEMATOCRIT 36.8 % (37-47)
--- NOTE | 2016-10-17 08:59 | PN- Student ---
Subjective Subjective: Patient was seen and examined this morning. Patient was admitted yesterday for persistent nausea and dark-colored urine. She is feeling better from yesterday, with no nausea, but still observed dark-colored urine. Patient is having ERCP this afternoon. Denies vomiting, dizziness, abdominal pain, chest pain, dyspnea, and weakness. Current Medications Sig/Gabriella Start time Last Medication Dose Route Stop Time Status Admin Ampicillin Sodium/ 1,500 MG Q6 10/17 1200 AC Sulbactam Sodium IV Sodium Chloride 100 ML Ampicillin Sodium/ 0 .STK-MED ONE 10/16 1522 DC Sulbactam Sodium .ROUTE Ampicillin Sodium/ 1,500 MG ONCE ONE 10/16 1515 DC 10/16 Sulbactam Sodium IV 10/16 1544 1710 Sodium Chloride 100 ML Enoxaparin Sodium 40 MG DAILY 10/17 1000 CAN SC Enoxaparin Sodium 40 MG ONCE ONE 10/16 1815 DC 10/16 SC 10/16 1816 2200 Ketorolac 30 MG Q6-PRN PRN 10/16 1815 AC 10/17 Tromethamine IV 0055 Morphine Sulfate 1 MG Q4 PRN 10/16 1615 DC IV Nicotine 14 MG DAILY 10/16 1947 AC 10/16 TOP 2158 Ondansetron HCl 4 MG Q6P PRN 10/16 1800 AC IV Oxycodone HCl 5 MG Q6 PRN 10/16 1615 DC PO Sodium Chloride 1,000 ML .Q8H 10/16 1630 AC 10/17 IV 0849 Sodium Chloride 1,000 ML BOLUS ONE 10/16 1500 DC 10/16 IV 10/16 1559 1548 Objective Objective: Physical Exam: General: alert and oriented x3. no acute distress Skin: no jaundice Head: NC/AT Heart: regular rate and rhythm. no murmurs Lungs: clear to auscultation Abdomen: normoactive bowel sounds. no tenderness to palpation Extremities: no edema, no erythema Vital Signs Date Time Temp Pulse Resp B/P B/P Pulse O2 O2 Flow FiO2 Mean Ox Delivery Rate 10/17 0626 97.8 64 20 124/80 96 Room Air 10/16 2350 98.0 81 18 136/76 95 Room Air 10/16 1800 98.2 75 18 145/65 98 Room Air 10/16 1733 97.6 70 18 152/82 98 Room Air 06/15 1321 98.1 94 20 171/95 97 Room Air Intake & Output 10/17 1600 10/17 0800 10/17 0000 Intake Total 1620 Output Total Balance 1620 Intake, IV 1500 Intake, Oral 120 Number 0 Bowel Movements Patient 180 lb Weight Weight Reported by Patient Measurement Method Abdominal Ultrasound (10/16/16): 1. Mild dilatation of intrahepatic bile ducts and the extrahepatic bile duct is also dilated to 8 mm. 2. Echogenic structure in the distal CBD could reflect an endoscopic biliary drain or choledocholithiasis. Consider GI consultation and possible ERCP as appropriate. [facility] x-ray (10/16/16): Status post cholecystectomy. CBD biliary stent right upper quadrant. No acute change of abdomen Awaiting blood culture results. Results Results: Laboratory Tests 10/17/16 0630: Anion Gap 8, Estimated GFR > 60, BUN/Creatinine Ratio 12.0, Total Bilirubin 2.5 H, Direct Bilirubin 1.8 H, AST 395 H, ALT 343 H, Alkaline Phosphatase 411 H, Total Protein 5.3 L, Albumin 2.8 L, PT 10.5, INR 1.00, CBC w Diff Pending, WBC Pending, RBC Pending, Hgb Pending, Hct Pending, MCV Pending, MCH Pending, RDW Pending, Plt Count Pending, MPV Pending, Gran % Pending, Lymphocytes % Pending, Monocytes % Pending, Eosinophils % Pending, Basophils % Pending, Absolute Granulocytes Pending, Absolute Lymphocytes Pending, Absolute Monocytes Pending, Absolute Eosinophils Pending, Absolute Basophils Pending, PUBS MCHC Pending 10/16/16 1426: Urinalysis LIGHT H, Urine Color BROWN H, Urine Clarity HAZY H, Urine pH 5.5, Ur Specific [place] >= 1.030, Urine Protein 30 H, Urine Ketones TRACE H, Urine Nitrite POS H, Urine Bilirubin POS@ICTO H, Urine Urobilinogen 1.0, Ur Leukocyte Esterase TRACE H, Ur Microscopic SEDIMENT EXAMINED, Urine RBC 1-3, Urine WBC 15-25 H, Ur Epithelial Cells PACKD H, Urine Crystals 1+ CA OX H, Urine Bacteria MANY H, Urine Mucus MANY H, Urine Hemoglobin TRACE-INTACT, Urine Glucose NEG 10/16/16 1327: Anion Gap 13, Estimated GFR > 60, BUN/Creatinine Ratio 14.0, Glucose 96, Lactic Acid 1.9, Calcium 10.0, Total Bilirubin 5.0 H, Direct Bilirubin 3.9 H, AST 534 H, ALT 409 H, Alkaline Phosphatase 576 H, Total Protein 7.5, Albumin 4.4, Globulin 3.1, Albumin/Globulin Ratio 1.4, Amylase 48, Lipase 123, Beta HCG, Quant < 2.4, PT 11.2, INR 1.07, APTT 33, CBC w Diff NO MAN DIFF REQ, RBC 5.38, MCV 79.3 L, MCH 25.7 L, RDW 17.3 H, MPV 9.4, Gran % 60.6, Lymphocytes % 35.2, Monocytes % 2.6, Eosinophils % 0.9, Basophils % 0.7, Absolute Granulocytes 5.6, Absolute Lymphocytes 3.2, Absolute Monocytes 0.2, Absolute Eosinophils 0.1, Absolute Basophils 0.1, PUBS MCHC 32.5 L Microbiology 10/16 1710 BLOOD: Blood Culture - RECD 10/16 1546 BLOOD: Blood Culture - RECD Assessment/Plan Assessment: Assessment and Plan: 41 yo female with history of heroin abuse (7-8 years sober) on Suboxone and cholecystectomy in July, presented yesterday with several months of persistent nausea and dark-colored urine. PE unremarkable. Patient is afebrile and normotensive. Labs reveal elevated total and direct bilirubin, AST, ALT, alk phos and low total protein and albumin. Abdominal U/S showed dilation of intrahepatic and extrahepatic bile ducts. [facility] x-ray showed CBD biliary stent. 1. Nausea * Patient had a cholecystectomy in July with a CBD stent placed after bile leak , has had sxs of nausea and fatigue, abnormal LFTs, and U/S showing dilation of intrahepatic and extrahepatic bile ducts. Patient is afebrile with no leukocytosis. Differential includes: primary sclerosing cholangitis, choledocholithiasis, retained calculi in CBD, and stone obstruction. * Trend LFTs and administer maintenance fluids. * Awaiting blood cultures r/o infection. * ERCP to be performed in afternoon to better visualize biliary and pancreatic ducts. 2. Heroin abuse * Continue suboxone.
[2016-10-17 09:12] LABS: GRANULOCYTE % 60.6 % (42.2-75.2)
--- NOTE | 2016-10-17 10:00 | NUR ---
NURSING NOTE: PATIENT'S FIANCE KIM AND BOTH SPOKE WITH CLOTH BLEACHING RANGE TENDER 269. PATIENT DECIDED TO STAY FOR PROCEDURE. WILL AWAIT PROCEDURE TIME.
[2016-10-17 12:49] VITALS: BP 140/74
--- NOTE | 2016-10-17 13:29 | NUR ---
NURSING NOTE: PATIENT LEFT FLOOR VIA STRETCHER WITH DISTRIBUTION FOR ERCP PROCEDURE. PATIENT IV HEP LOCKED. PATIENT HAS NO COMPLAINTS AT THIS TIME. WILL AWAIT RETURN.
--- NOTE | 2016-10-17 14:01 | Patient Discharge Instructions ---
Discharge Instructions General Discharge Information You were seen/treated for: Biliary colic Special Instructions: Please folllow up with sharepoint engineer Dr. Mcneil and your primary care physician within 1 week of discharge. Diet Continue normal diet: Yes (as tolerated) Activity Full Activity/No Limits: Yes (as tolerated) Acute Coronary Syndrome Inclusion Criteria At DC or during hospital stay patient has or had the following: ACS DIAGNOSIS No Discharge Core Measures Meds if any: Prescribed or Continued at Discharge Meds if any: NOT Prescribed or Continued at Discharge Congestive Heart Failure Inclusion Criteria At DC or during hospital stay patient has or had the following: CHF DIAGNOSIS No Discharge Core Measures Meds if any: Prescribed or Continued at Discharge Meds if any: NOT Prescribed or Continued at Discharge Cerebrovascular accident Inclusion Criteria At DC or during hospital stay patient has or had the following: CVA/TIA Diagnosis No Discharge Core Measures Meds if any: Prescribed or Continued at Discharge Meds if any: NOT Prescribed or Continued at Discharge Venous thromboembolism Inclusion Criteria VTE Diagnosis No VTE Type NONE VTE Confirmed by (Test) NONE Discharge Core Measures - Per Current guidelines, there needs to be overlap - treatment for the first 5 days of Warfarin therapy. - If discharged on Warfarin prior to 5 days of - overlap therapy, the patient will need to be - assessed for post discharge needs including - *Post discharge parental anticoagulation - *Warfarin and/or parental anticoagulation education - *Follow up date to check INR post discharge At least 5 days overlap therapy as Inpatient No Meds if any: Prescribed or Continued at Discharge Note: Overlap Therapy is Warfarin and Anticoagulant Meds if any: NOT Prescribed or Continued at Discharge
--- NOTE | 2016-10-17 15:53 | RADIOLOGY REPORT ---
EXAMINATION: XR BILIARY AND PANCREATIC ERCP CLINICAL INFORMATION: 41-year-old female with history of cholecystectomy and common bile duct stent. COMPARISON: [facility] from 10/16/2016 TECHNIQUE: Fluoroscopic imaging assistance provided for endoscopic retrograde cholangiopancreatography performed by Dr. Jorge A Camarillo within the operating room. FLUOROSCOPY TIME: 10 minutes, 51.2 seconds DOSE: 30.37 rad NUMBER OF SAVED IMAGES: 14 FINDINGS: Please refer to the operative report. A duodenoscope was placed, common duct cannulated and contrast injected into the biliary tree. Surgical clips from cholecystectomy. There is irregular narrowing and/or filling defect(s) of the common hepatic duct and apparent stricture of the proximal segment of the common bile duct. A balloon was apparently utilized to sweep the duct. The visualized right and left intrahepatic ducts are dilated. IMPRESSION: Fluoroscopic imaging assistance provided to the operating room for ERCP. Please refer to the operative report regarding the specific indications for the procedure(s) and the intraoperative findings.
--- NOTE | 2016-10-17 16:40 | Proc Note ERCP ---
ERCP Procedure Procedure Date: 10/17/16 GI Procedure(s): ERCP with stent removal` Cane Splicer: Jorge A Camarillo M.D. ASA Classification: II Indications: Hyperbilirubinemia/abnormal liver function tests, nausea In July the patient had a cholecystectomy complicated by a bile leak. She underwent ERCP on August 01, with sphincterotomy and placement of a stent. Instrument: duodenoscope Meds Received: MAC Patient's Tolerance: good Complications: none Procedure: The patient signed informed consent, was brought to the operating room, turned into the prone position, and was medicated. Pulse oximetry, blood pressure and cardiac monitoring were performed continuously throughout the procedure. The Olympus high-definition the duodenoscope was inserted into the mouth and advanced to the duodenum. The stomach was not examined. The duodenum was normal. There was a divided papilla. The indwelling plastic biliary stent was snared and removed through the endoscope. The common bile duct was cannulated and opacified (using an extraction balloon catheter, with balloon inflated). The pancreatic duct was not cannulated/injected. The common bile duct was normal. The cystic duct remnant was opacified, and there was no evident extravasation. There was a narrowing and angulation at the area of the confluence of extrahepatic bile duct and cystic duct (with visible clips in this area) and narrowing/irregularity of the common hepatic duct immediately proximally, with normal more proximal common hepatic duct, and dilated intrahepatic ducts. It was not possible to pass a wire through this angulated area. The duct was swept with an inflated extraction balloon from proximal common bile duct to duodenum, without delivery of stone or debris. Impression: * Removal of biliary stent * Apparent stricture at the area of cystic duct insertion/distal common hepatic duct Recommendations: * Follow-up LFTs/bilirubin * Change antibiotics to Cipro 500 mg by mouth twice a day (prescribed for 10 day course) * Begin liquid diet and advance as tolerated * If liver enzymes do not improve, and certainly if they worsen or there is evidence of cholangitis, may require further intervention (such as repeat ERCP, percutaneous cholangiogram with/ without endoscopic rendezvous, etc.).
--- NOTE | 2016-10-17 17:31 | Event Note ---
Event Note Event Note: Please see ERCP note as well for findings and recommendations. Would keep the patient in hospital until tomorrow, and observe for the development of pain or fever. Please recheck liver function tests, including alkaline phosphatase, in the morning. Please start Cipro 500 mg by mouth twice a day for [address] Lang will see the patient tomorrow to help decide disposition. If discharged, will need liver function tests checked after the weekend, and I will see her in the office in follow-up.
[2016-10-17 17:39] VITALS: BP 128/74
[2016-10-17 21:26] VITALS: BP 132/78
--- NOTE | 2016-10-17 23:54 | NUR ---
PATIENT RETURNED FROM ERCP AT APPROX 1545, ANXIOUS TO GO HOME, STATED SHE WAS TOLD SHE COULD GO HOME AFTER PROCEDURE. DR NGUYEN IN TO SEE PATIENT AND EXPLAIN RESULTS AND ADVANCED DIET TO CLEAR LIQUID, PT TOLERATED WELL. UNDERSTOOD NEED TO STAY ADD'L NIGHT. NO C/O PAIN, RESTING COMFORTABLY IN ROOM. SAFETY MAINTAINED, NEEDS WITHIN REACH.
--- NOTE | 2016-10-18 06:41 | PN- Housestaff ---
See Addendum Subjective Follow-up For: Billiary Diseas s/p Stent placement Subjective: Ms Goodson was seen and examined this morning. She states that she feels good and has had no acute abdominal events overnight. She is currently pain-free. She states she has not had any nausea or vomiting. She denies any fever or chills. She states that she feels more energetic and is eager to be discharged as soon as possible. Review of Systems Constitutional: Reports: see HPI. Objective Last 24 Hrs of Vital Signs/I&O Vital Signs Date Time Temp Pulse Resp B/P B/P Pulse O2 O2 Flow FiO2 Mean Ox Delivery Rate 10/18 0702 98.3 63 20 144/86 99 10/17 2126 98.7 84 18 132/78 97 Room Air 10/17 1739 98.0 62 18 128/74 98 Room Air 10/17 1249 97.8 74 20 140/74 99 Room Air Intake & Output 10/18 1600 10/18 0800 10/18 0000 Intake Total 1480 1350 Output Total Balance 1480 1350 Intake, IV 1000 750 Intake, Oral 480 600 Number 0 Bowel Movements Physical Exam General Appearance: Alert, Oriented X3, Cooperative Cardiovascular: Regular Rate, Normal S1, Normal S2 Lungs: Clear to Auscultation Abdomen: Normal Bowel Sounds, Soft, No Tenderness Neurological: Normal Gait, Normal Speech, Strength at 5/5 X4 Ext Extremities: No Edema Vascular: Normal Pulses Current Medications: Current Medications Sig/Gabriella Start time Last Medication Dose Route Stop Time Status Admin Ampicillin Sodium/ 1,500 MG Q6 10/17 1200 DC 10/17 Sulbactam Sodium IV 1152 Sodium Chloride 100 ML Benzocaine 1 ANA .STK-MED ONE 10/17 1529 DC TOP 10/17 1530 Buprenorphine/ 1 TAB 0800 10/17 1130 DCD 10/17 Naloxone SL 1152 Ciprofloxacin 500 MG BID 10/17 2200 DCD 10/18 PO 10/27 1001 0848 Fentanyl Citrate 100 MCG .STK-MED ONE 10/17 1414 DC IM 10/17 1415 Iopamidol 1 ML .STK-MED ONE 10/17 1529 DC IV 10/17 1530 Ketorolac 30 MG Q6-PRN PRN 10/16 1815 DCD 10/17 Tromethamine IV 0055 Lidocaine 2 ANA .STK-MED ONE 10/17 1529 [place] TOP 10/17 1530 Nicotine 14 MG DAILY 10/16 1947 [facility] 10/17 TOP 1021 Ondansetron HCl 4 MG Q6P PRN 10/16 1800 DCD IV Patient Medication 1 ED .STK-MED ONE 10/17 1415 [place] Teaching ED 10/17 1416 Sodium Chloride 1,000 ML .Q8H 10/16 1630 DCD 10/18 IV 0459 Last 24 Hrs of Lab/Uzair Results Last 24 Hrs of Labs/Mics: Laboratory Tests 10/18/16 0719: Anion Gap 9, Estimated GFR > 60, BUN/Creatinine Ratio 6.0 L, Total Bilirubin 5.3 H, Direct Bilirubin 4.1 H, AST 414 H, ALT 394 H, Alkaline Phosphatase 497 H, Total Protein 6.1 L, Albumin 3.3 L, CBC w Diff NO MAN DIFF REQ, RBC 4.88, MCV 78.6 L, MCH 25.7 L, RDW 16.8 H, MPV 9.5, Gran % 80.4 H, Lymphocytes % 15.5 L, Monocytes % 2.6, Eosinophils % 1.5, Basophils % 0 L, Absolute Granulocytes 7.5 H, Absolute Lymphocytes 1.4, Absolute Monocytes 0.2, Absolute Eosinophils 0.1, Absolute Basophils 0, PUBS MCHC 32.8 L Assessment/Plan Assessment: Patient is a 41-year-old female with 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 # Biliary colic She had undergone cholecystectomy(07/28/2016) followed by percutaneous cholecystostomy tube with CBD biliary stent placement. LFTs sigificant for T bili 5, direct bili 3.9, AST 534, ALT 409, alkaline phosphatase 576. Her current biliary colic with nausea, vomiting and dark urine is most likely 2/2 gallstone retention or clogged CBD stent. Consistent with U/S which showed dilatation of intrahepatic and extrahepatic bile duct (8mm). [facility] x-ray showed CBD biliary stent right upper quadrant. * Although lab results from this morning have shown that the patient's liver function, alkaline phosphatase, AST, ALT, total bilirubin have all increased the patient was adamant that she should leave. She was extensively counseled on the risks of doing so however she chose not to comply. She signed out AMA. She was given a prescription for ciprofloxacin 500 mg twice a day for 10 days. She states that she'll follow-up as an outpatient. * Vitals per protocol * GI following, appreciate recs. * Patient remains aferbile and HDS with no signs of systemic infection. Suspiscion for cholangitis insignificant. Regardless she received 1 dose of IV Unasyn in the ED, * Continue IV Unasyn for the biliary procedure/ ERCP. * Follow up blood cultures * Advance diet as tolerated after ERCP * Continue IV Zofran for nausea as needed * Trend LFTs * Notify GI stat if patient becomes hemodynamically unstable or develops signs of cholangitis. # Chronic opioid use Patient is on 2 mg SUBOXONE sublingual. She receives it from Dr. Jensen in [place]. Patient received a dose today. * Continue suboxone 2mg daily Tolerating Diet. - Mild-moderate pathway - DVTppx with Lovenox - Full code. Problem List: 1. Nausea & vomiting 2. Nausea 3. Common bile duct dilatation 4. Cholangitis 5. Biliary colic Pain Ratin Pain Location: No Pain Pain Goal: Remain pain free Pain Plan: Tylenol PRN Tomorrow's Labs & Rationales: No Labs
[2016-10-18 07:02] VITALS: BP 144/86
[2016-10-18 07:58] LABS: ABSOLUTE BASOPHIL COUNT 0 /CUMM (0.0-0.2); ABSOLUTE EOSINOPHIL COUNT 0.1 /CUMM (0.0-0.7); ABSOLUTE GRANULOCYTE CT 7.5 /CUMM (1.4-6.5); ABSOLUTE LYMPH COUNT 1.4 /CUMM (1.2-3.4); ABSOLUTE MONOCYTE COUNT 0.2 /CUMM (0.10-0.60); BASOPHIL % 0 % (0.0-2.0); EOSINOPHIL % 1.5 % (0-5); GRANULOCYTE % 80.4 % (42.2-75.2); HEMATOCRIT 38.4 % (37-47); MEAN CORPUSCULAR HGB 25.7 PG (27.0-31.0); MEAN CORPUSCULAR HGB CONC 32.8 G/DL (33.0-37.0); MEAN CORPUSCULAR VOLUME 78.6 FL (81.0-99.0); MEAN PLATELET VOLUME 9.5 FL (7.4-10.4); PLATELET COUNT 294 /CUMM (130-400); RBC DISTRIBUTION WIDTH 16.8 % (11.5-14.5); RED BLOOD CELL CT 4.88 /CUMM (4.20-5.40)
--- NOTE | 2016-10-18 08:07 | NUR ---
PT REPORTS SHE IS BEING D/C TODAY AND IF WE DON'T D/C HER THIS MORNING SHE IS LEAVING ANY WAY. PT IV LEAKING AT 0807, PT REFUSED NEW IV. SENT TEXT PAGE TO PROSTHET[facility] LAB TECHNICIAN #[id number].
[2016-10-18] MEDS ORDERED: CIPRO500 M1 PO (09:22)
--- NOTE | 2016-10-18 09:23 | Event Note ---
Event Note Event Note: S: Informed that the pateint expressed that she wanted to be dishraged immediately this AM. B: Although lab results from this morning have shown that the patient's liver function, alkaline phosphatase, AST, ALT, total bilirubin have all increased the patient was adamant that she should leave. She was extensively counseled on the risks of doing so however she chose not to comply, despite showing her that her numbers. A/R: She signed out AMA. She was given a prescription for ciprofloxacin 500 mg twice a day for 10 days. She states that she'll follow-up as an outpatient. Kb was present. Patients nurse was present. Attending Physician Dr Rodriguez present.
--- NOTE | 2016-10-18 09:25 | NUR ---
nursing note: pt awake, a/ox3, asking to sign out ama. staci internet marketing assistant paged and aware, ama paperwork completed, script given to pt by internet marketing assistant. iv dcd, belongings packed by pt.
[2016-10-18 09:29] LABS: WHITE BLOOD CELL COUNT 9.3 /CUMM (4.8-10.8)
--- NOTE | 2016-10-19 06:32 | Discharge Summary ---
Visit Information Visit Dates Admission Date: 10/16/16 Discharge Date: 10/18/16 Hospital Course Course Attending Physician: NIHARIKA PARADA MD Primary Care Physician: PATIENT HAS NO PRIMARY CARE DR Hospital Course: Patient is a 41-year-old female with 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 # Biliary colic Patient presented with nausea and abdominal discomfort with eating and she has also had some non-bloody diarrhea. Although patient was not completely sure about the past procedures she had undrgone, based on her report it was apparent that a few months ago the patient had cholecystectomy done (07/28/2016) followed by percutaneous cholecystostomy tube with CBD biliary stent placement. LFTs sigificant for T bili 5, direct bili 3.9, AST 534, ALT 409, alkaline phosphatase 576. Her current biliary colic with nausea, vomiting and dark urine was attributed to gallstone retention or clogged CBD stent. This was consistent with U/S which showed dilatation of intrahepatic and extrahepatic bile duct (8mm). [facility] x-ray confirmed CBD biliary stent right upper quadrant. Patient was kept on IV Unasyn for the procedure on day 2. ERCP was only significant for an apparent stricture at the area of cystic duct insertion/distal common hepatic duct. Her biliary stent was removed during the procedure. Per GI recommendation, patient was started on Cipro 500mg PO BID to complete 10 day course. The next day s/p ERCP, her LFTs including alkaline phosphatase, AST, ALT, total bilirubin have all increased. However the patient was adamant that she should leave. She was extensively counseled on the risks of doing so however she chose not to comply. She signed out AMA. She was given a prescription for ciprofloxacin 500 mg twice a day for 10 days. She stated that she'd follow-up as an outpatient. # Chronic opioid use Patient is on 2 mg SUBOXONE sublingual. She receives it from Dr. Jensen in [place]. Patient was kept on her home dose of Suboxone. Allergies: Coded Allergies: No Known Allergies (10/16/16) Disposition Summary Disposition Principal Diagnosis: Biliary colic Additional Diagnosis: Cystic duct stricture Discharge Disposition: left against medical adv Discharge Instructions General Discharge Information Code Status: Full Code Patient's Diet: Advance as tolerated Patient's Activity: As tolerated Follow-Up Instructions/Appts: Please folllow up with skirt maker Dr. Mcneil and your primary care physician within 1 week of discharge. Medications at Discharge Discharge Medications: Continue taking these medications: Buprenorphine HCl/Naloxone HCl (Suboxone 2 MG-0.5 MG Sl Film) 2 MG-0.5 MG FILM 1 Strip SUBLINGUAL TWICE DAILY Comments: Last Taken: 10/17/16 Time: 0800AM Multivits,Ca,Minerals/Iron/FA (Women's Daily Caplet) 27 MG IRON-400 MCG TABLET 1 Tablet ORAL DAILY Comments: NOT GIVEN Start taking the following new medications: Ciprofloxacin HCl (Cipro) 500 MG TABLET 500 Milligram ORAL TWICE DAILY Qty = 20 No Refills Comments: Last Taken: 10/18/16 Time: 0900AM Copies To: BORIS MCNEIL MD
== END 2016-10-18 09:34 | disposition left against medical advice (07) | DRG 445 ==
LOC: ERH 13:13 → 2NB 15:58 → ERHI 15:58 → ENRESERV 17:21 → ENTRNSPT 17:45 → 2NB 17:46 → CMPTRNSPT 18:09 → 2NB 10-18 09:34
PROVIDERS: Emergency Medicine; Student in an Organized Health Care Education/Training Program; ADMIT Internal Medicine
PROC: 0F798ZZ Dilation of Common Bile Duct, Via Natural or Artificial Opening Endoscopic (ICD-10-PCS; principal; 2016-10-17)
PROC: 0FPB8DZ Removal of Intraluminal Device from Hepatobiliary Duct, Via Natural or Artificial Opening Endoscopic (ICD-10-PCS; principal; 2016-10-17)
DX: K83.1 Obstruction of bile duct (principal); F11.20 Opioid dependence, uncomplicated; E80.6 Other disorders of bilirubin metabolism
CPT/HCPCS: 2NSBP; 36415; 74000; 81001; 82436; 87040; 96374; J0574; J1650; J1885; J2405; Q9967